=== PATIENT | male | born 2000 | race Two or more races ===

== ENCOUNTER → 2025-02-19 | Emergency (ER) | payer OTHER ==
[~2025-02-19] VITALS: Ht 172.7 cm; Wt 116.1 kg
[~2025-02-19] MED LIST: DEXAMETHASONE SODIUM PHOSPHATE 4 MG/ML VIAL IM STA; DEXAMETHASONE SODIUM PHOSPHATE 4 MG/ML VIAL ONE; INTESTINEX680 M1 PO; KETOROLAC TROMETHAMINE 30 MG VIAL IM STA; METRONIDAZOLE500 MG PO; ONDANSETRON ODT8 MG PO; ORPHENADRINE CITRATE 30 MG/ML AMPUL IM STA; ORPHENADRINE CITRATE 30 MG/ML AMPUL ONE; PEPCID AC20 MG PO
== END | disposition home or self-care (01) ==
LOC: ER 17:51
DX: M43.6 Torticollis (principal); M54.2 Cervicalgia